=== PATIENT | female | born 1995 | race Caucasian/White ===

== ENCOUNTER 2018-10-05 19:49 | Emergency (ER) | payer BC ==
[2018-10-05] MEDS ORDERED: RINGERS SOLUTION,LACTATED 1,000 ML IV ONE (21:13)
[2018-10-05] MEDS ORDERED: KETOROLAC TROMETHAMINE INJ/PF 30 MG/1 ML SDV IV ONE (21:45)
[2018-10-05] MEDS ORDERED: PROCHLORPERAZINE EDISYLATE INJ 10 MG/2 ML VIAL IV ONE (21:45)
[2018-10-05] MEDS ORDERED: DIPHENHYDRAMINE HCL 50 MG/ML VIAL IV ONE (23:03)
--- NOTE | 2018-10-05 23:58 | ER Document Report ---
ED General - General Chief Complaint: Headache Stated Complaint: MIGRAINE Time Seen by Provider: 10/05/18 21:13 Primary Care Provider: MORIAH RUTH MD [Primary Care Provider] - Follow up as needed Notes: Patient is otherwise healthy 23-year-old female presents to the emergency department for generalized headache. Patient states she does have an extensive history of migraines and typically takes sumatriptan for her migraines. States her primary care provider did not call in a refill for her medications that she has been without them for about a week. Patient states she has pain in the left side of her head and has stayed consistent since Friday. Patient states her migraines are typically unilateral in nature. Patient states this headache feels exactly like her other migraines and she is denying any head trauma. Patient is denying any vomiting or photophobia. States she typically just gets a generalized headache. Past medical history: Migraines Medications: Sumatriptan Allergies: None Patient is unsure of her last menstrual cycle. TRAVEL OUTSIDE OF THE [place] IN LAST 30 DAYS: No - Related Data Allergies/Adverse Reactions: No Known Allergies Allergy (Unverified 10/05/18 19:53) Past Medical History - General Information source: Patient - Social History Smoking Status: Never Smoker Frequency of alcohol use: None Drug Abuse: None Family History: Reviewed & Not Pertinent Patient has suicidal ideation: No Patient has homicidal ideation: No Renal/ Medical History: Denies: Hx Peritoneal Dialysis Review of Systems - Review of Systems Constitutional: No symptoms reported EENT: No symptoms reported Cardiovascular: No symptoms reported Respiratory: No symptoms reported Gastrointestinal: See HPI Genitourinary: No symptoms reported Female Genitourinary: See HPI Musculoskeletal: No symptoms reported Skin: No symptoms reported Hematologic/Lymphatic: No symptoms reported Neurological/Psychological: See HPI Physical Exam - Vital signs Vitals: Temp Pulse Resp BP Pulse Ox 98.9 F 82 16 128/81 H 99 10/05/18 20:31 10/05/18 20:31 10/05/18 20:31 10/05/18 20:31 10/05/18 20:31 - Notes Notes: GENERAL: Alert, interacts well. No acute distress. HEAD: Normocephalic, atraumatic. EYES: Pupils equal, round, and reactive to light. Extraocular movements intact. ENT: Oral mucosa moist, tongue midline. NECK: Full range of motion. Supple. Trachea midline. No nuchal rigidity noted LUNGS: Clear to auscultation bilaterally, no wheezes, rales, or rhonchi. No respiratory distress. HEART: Regular rate and rhythm. No murmur ABDOMEN: Soft, non-tender. Non-distended. Bowel sounds present in all 4 quadrants. EXTREMITIES: Moves all 4 extremities spontaneously. No edema, normal radial and dorsalis pedis pulses bilaterally. No cyanosis. 5 out of 5 strength all 4 extremities. BACK: no cervical, thoracic, lumbar midline tenderness. No saddle anesthesia, normal distal neurovascular exam. NEUROLOGICAL: Alert and oriented x3. Normal speech. cranial nerves II through XII grossly intact PSYCH: Normal affect, normal mood. SKIN: Warm, dry, normal turgor. No rashes or lesions noted. Course - Re-evaluation Re-evalutation: 10/05/18 23:55 Initially patient was treated with IV fluids, Toradol and Compazine. After Compazine administration nurse brings to my attention that the patient feels as though she is having hard time breathing. Upon my reexamination patient's lung sounds are clear and equal in all messina. She does not have any skin eruptions at this time. This does not appear to be an allergic reaction this appears to be a dystonic reaction from the Compazine. Benadryl ordered. After Benadryl patient states "I feel a whole lot better." Patient states her headache has since resolved and she no longer feels as though it is hard to take a deep breath. Discussed close follow-up with primary care provider to get her sumatriptan refilled and also following up with neurology for continued treatment. Patient voices understanding and is stable for discharge. - Vital Signs Vital signs: Temp Pulse Resp BP Pulse Ox 98.0 F 91 15 119/74 97 10/05/18 23:15 10/05/18 23:15 10/05/18 23:15 10/05/18 23:15 10/05/18 23:15 Discharge - Discharge Clinical Impression: Migraine Qualifiers: Migraine type: unspecified Status migrainosus presence: without status migrainosus Intractability: not intractable Qualified Code(s): G43.909 - Migraine, unspecified, not intractable, without status migrainosus Condition: Stable Disposition: HOME, SELF-CARE Instructions: Intravenous Compazine for Headaches ([facility]), Use of Diphenhydramine, Toradol Injection ([facility]), Headache ([facility]) Additional Instructions: As we discussed you have been seen and treated in the emergency department for a migraine headache. Please make sure you follow-up with your primary care provider in the next 24-48 hours. Please also return to the emergency room should you have any other concerning symptoms. I have provided phone numbers for neurology in this area. Referrals: MORIAH RUTH MD [Primary Care Provider] - Follow up as needed ULISSES SHAFFER MD [EMERITUS] - Follow up as needed HARRIS PENA PA [NO LOCAL MD] - Follow up as needed
[2018-10-06 00:31] VITALS: BP 144/88
== END 2018-10-06 00:31 | disposition home or self-care (01) ==
LOC: ER 19:49
DX: G43.909 Migraine, unspecified, not intractable, without status migrainosus (principal)
CPT/HCPCS: 99283; 96361; 96374; 96375; 81025; J1200; J1885; J0780; J7120

== ENCOUNTER 2018-12-09 06:22 | Emergency (ER) | payer BC ==
[2018-12-09] MEDS ORDERED: METOCLOPRAMIDE HCL INJ/PF 10 MG/2 ML SDV IV ONE (07:43)
[2018-12-09] MEDS ORDERED: NORMAL SALINE 1000 ML 1,000 ML IV ONE (07:43)
[2018-12-09] MEDS ORDERED: DIPHENHYDRAMINE HCL 50 MG/ML VIAL IV ONE (07:43)
--- NOTE | 2018-12-09 09:31 | ER Document Report ---
Entered by BEKAH LEON SCRIBE 12/09/18 0741 Acting as scribe for:HERIBERTO RUEDA MD ED Headache - General Chief Complaint: Headache >24 hrs old Stated Complaint: MIGRAINE X 3 DAYS Time Seen by Provider: 12/09/18 07:32 Primary Care Provider: TIGIST MICHAEL [Primary Care Provider] - Follow up as needed Mode of Arrival: Ambulatory Information source: Patient Notes: 23-year-old female with diagnosed migraines that presents to emergency department today with complaints of a migraine headache for the last x4 days. Patient states that the pain is located on the left side of her head and that it is typical for a migraine headache of hers. Patient states she saw her primary care physician for this headache and had her Imitrex "bumped up" which did not change her headache. Patient states that she wishes to be referred to neurology by her primary care physician, but this has not yet been done. Patient states her last menstrual period was April 2018, currently using Nexplanon. Patient denies any nausea or vomiting. TRAVEL OUTSIDE OF THE [place] IN LAST 30 DAYS: No - Related Data Allergies/Adverse Reactions: prochlorperazine [From Compazine] Allergy (Verified 12/09/18 06:43) Past Medical History - General Information source: Patient - Social History Smoking Status: Never Smoker Cigarette use (# per day): No Chew tobacco use (# tins/day): No Frequency of alcohol use: Occasional Drug Abuse: None Lives with: Family Family History: Reviewed & Not Pertinent Patient has suicidal ideation: No Patient has homicidal ideation: No Neurological Medical History: Reports: Hx Migraine Review of Systems - Review of Systems Constitutional: No symptoms reported EENT: No symptoms reported Cardiovascular: No symptoms reported Respiratory: No symptoms reported Gastrointestinal: denies: Nausea, Vomiting Genitourinary: No symptoms reported Female Genitourinary: No symptoms reported Musculoskeletal: No symptoms reported Skin: No symptoms reported Hematologic/Lymphatic: No symptoms reported Neurological/Psychological: See HPI, Headaches -: Yes All other systems reviewed and negative Physical Exam - Vital signs Vitals: Temp Pulse Resp BP Pulse Ox 98.2 F 76 16 119/69 97 12/09/18 06:27 12/09/18 06:27 12/09/18 06:27 12/09/18 06:27 12/09/18 06:27 - Notes Notes: Physical Exam: General: Alert, appears well. HEENT: Normocephalic. Atraumatic. PERRL. Extraocular movements intact. Oropharynx clear. Neck: Supple. Trapezius and posterior cervical musculature tenderness to palpation, left greater than right. Respiratory: No respiratory distress. Clear and equal breath sounds bilaterally. Cardiovascular: Regular rate and rhythm. Abdominal: Normal Inspection. Non-tender. No distension. Normal Bowel Sounds. Back: Non-tender. No deformity or step off. Extremities: Moves all four extremities. Upper extremities: Normal inspection. Normal ROM. Lower extremities: Normal inspection. No edema. Normal ROM. Neurological: Normal cognition. AAOx4. Normal speech. Psychological: Normal affect. Normal Mood. Skin: Warm. Dry. Normal color. Course - Re-evaluation Re-evalutation: 12/09/18 09:32 Patient reports her headache is much better and she feels well at this time. - Vital Signs Vital signs: Temp Pulse Resp BP Pulse Ox 98.2 F 76 16 119/69 97 12/09/18 06:27 12/09/18 06:27 12/09/18 06:27 12/09/18 06:27 12/09/18 06:27 Discharge - Discharge Clinical Impression: Headache Qualifiers: Headache type: tension-type Headache chronicity pattern: acute headache Intractability: not intractable Qualified Code(s): G44.209 - Tension-type headache, unspecified, not intractable Condition: Stable Disposition: HOME, SELF-CARE Additional Instructions: Headache The physician does not feel that the headache you are experiencing has a serious underlying cause. Most headaches are due to muscle tension (tension headache). Occasionally, headaches are secondary to changes in the blood vessels of the scalp (vascular headache and migraine headache). Sometimes, a headache is the first symptom of another developing illness, such as a viral infection. You have no evidence of stroke, bleeding, meningitis, or other serious cause of your headache. The treatment of headaches varies with the severity and cause of the pain. Not all headaches need pain shots. In fact, there is evidence that using narcotics for headaches may make them worse in the long run. The physician will determine the therapy that's in your best interest. If you develop a fever, if the headache is different from any you've previously experienced, or if the headache progressively worsens, then call your physician at once or go to the emergency room. Drink plenty of fluids today. Get plenty of rest and sleep in a cool, dark, quiet room. Take Tylenol and ibuprofen today for headache as needed. Follow-up with your doctor if not improving. RETURN TO THE EMERGENCY ROOM IF ANY NEW OR WORSENING SYMPTOMS. Referrals: LOCALMD,NO [Primary Care Provider] - Follow up as needed Scribe Attestation: 12/09/18 08:40 I personally performed the services described in the documentation, reviewed and edited the documentation which was dictated to the scribe in my presence, and it accurately records my words and actions. 12/09/18 0840 I personally performed the services described in the documentation, reviewed and edited the documentation which was dictated to the scribe in my presence, and it accurately records my words and actions.
[2018-12-09 10:39] VITALS: BP 118/74
== END 2018-12-09 10:37 | disposition home or self-care (01) ==
LOC: ER 06:22
DX: G44.209 Tension-type headache, unspecified, not intractable (principal); Z88.8 Allergy status to other drugs, medicaments and biological substances
CPT/HCPCS: 99283; 96361; 96374; 96375; J1200; J2765; J7030